=== PATIENT | male | born 1965 | race Caucasian/White ===

== ENCOUNTER → 2020-12-26 14:34 | Outpatient (REF) | payer OTHER, SELFPAY | LOC: ANHLAB 14:34 | PROVIDERS: PCP Family Medicine; Visit Provider Nurse Practitioner | DX: R22.9 Localized swelling, mass and lump, unspecified (principal); L72.11 Pilar cyst | CPT/HCPCS: 88304 ==

== ENCOUNTER → 2021-03-23 13:03 | Outpatient (REF) | payer OTHER, SELFPAY | LOC: ANHLAB 13:03 | PROVIDERS: PCP Family Medicine; Visit Provider Nurse Practitioner | DX: D22.22 Melanocytic nevi of left ear and external auricular canal (principal) | CPT/HCPCS: 88305 ==

== ENCOUNTER → 2022-02-06 11:53 | Outpatient (REF) | payer OTHER, SELFPAY | LOC: ANHLAB 11:53 | PROVIDERS: PCP Family Medicine; Visit Provider Nurse Practitioner | DX: D22.39 Melanocytic nevi of other parts of face (principal) | CPT/HCPCS: 88305 ==

== ENCOUNTER 2023-02-12 09:00 | Outpatient (NON) | payer OTHER, SELFPAY | END 2023-02-12 09:01 | disposition home or self-care (01) | LOC: ANHLAB 02-13 12:14 | PROVIDERS: PCP Family Medicine; Visit Provider Nurse Practitioner | DX: D23.5 Other benign neoplasm of skin of trunk (principal) | CPT/HCPCS: 88305 ==